=== PATIENT | male | born 1965 | race Caucasian/White ===

== ENCOUNTER 2019-06-11 20:57 | Inpatient (IN) | payer MEDICAID ==
[~2019-06-11] VITALS: Ht 165.1 cm; Wt 73.3 kg
[2019-06-11] MEDS ORDERED: SODIUM CHLORIDE 0.9% 1,000 ML IV ONE ×2 (21:14→23:23)
[2019-06-11 21:48] LABS: BASOPHILS % 0.1 % (0.0-2.0); EOSINOPHILS % 1.7 % (0.0-5.0); HEMATOCRIT. 38.2 % (42.0-52.0); HEMOGLOBIN. 12.6 g/dL (14.0-18.0); LYMPHOCYTES % 9.5 % (20.0-50.0); MEAN CORPUSCULAR HEMOGLOBIN 28.9 pg (28.0-32.0); MEAN CORPUSCULAR VOLUME 87.5 fL (80.0-94.0); MEAN PLATELET VOLUME 8.3 fl (7.4-10.4); MONOCYTES % 5.3 % (2.0-8.0); NEUTROPHILS % 83.4 % (40.0-76.0); PLATELET 250 x1000/uL (130-400); RED BLOOD CELL COUNT 4.36 mill/uL (4.7-6.1); RED CELL DISTRIBUTION WIDTH 13.1 % (11.6-14.6)
[2019-06-11 21:55] LABS: CHLORIDE 104 mEq/L (98-107)
[2019-06-11 22:02] LABS: BETA HYDROXYBUTYRATE 0.1 mMol/L (0.0-0.3)
[2019-06-11] MEDS ORDERED: ONDANSETRON HCL 4MG/2ML INJ IV STA (22:24)
[2019-06-11] MEDS ORDERED: MORPHINE SULFATE 4 MG/ML CPJ (NOT FOR IM USE) IV STA (22:24)
[2019-06-11] MEDS ORDERED: FAMOTIDINE 20MG/2ML VIAL IV STA (22:24)
[2019-06-11] MEDS ORDERED: SODIUM CHLORIDE 0.9% 1000ML BAG (SEPSIS BOLUS) IV ONE (22:45)
[2019-06-11 22:51] LABS: ETHANOL BLOOD < 10 mg/dL
[2019-06-11] MEDS ORDERED: VANCOMYCIN 1 G PREMIX 200 ML IV ONE (23:30)
[2019-06-11] MEDS ORDERED: FENTANYL CITRATE/PF 50MCG/ML 2ML VIAL IV ONE (23:30)
[2019-06-11] MEDS ORDERED: HYDROCORTISONE SOD SUCCINATE 100 MG/2 ML VIAL IV ONE (23:30)
[2019-06-11] MEDS ORDERED: PIPERACILLIN/TAZ 3.375G PREMIX 50 ML IV ONE (23:30)
[2019-06-12] VITALS (52 sets, daily range): BP systolic 70–133; BP diastolic 36–80
[2019-06-12 00:01] LABS: BG BASE EXCESS -7.7 mmol/L (-2.0-2.0); BG CARBOXYHEMOGLOBIN 0.3 % (0.5-1.5); BG DEOXYHEMOGLOBIN 16.9 % (0.0-5.0); BG FRACTION INSPIRED OXYGEN 21; BG HCO3 ACT 18.2 mmol/L (22.0-26.0); BG METHEMOGLOBIN 0.2 % (0.0-1.5); BG OXYHEMOGLOBIN 82.6 % (94.0-97.0); BG PCO2 38.7 mmHg (35.0-45.0); BG PH 7.291 (7.350-7.450); BG PO2 52.1 mmHg (75.0-100.0); BG SAMPLE SITE RIGHT BRACHIAL; BG TOTAL HEMOGLOBIN 10.8 g/dL (12.0-18.0); BG VENT MODE ROOM AIR
[2019-06-12] MEDS ORDERED: FENTANYL CITRATE/PF 50MCG/ML 2ML VIAL IV ONE (01:30)
[2019-06-12] MEDS ORDERED: LIDOCAINE HCL 2% JELLY 30ML TOP SCH (03:15)
[2019-06-12 04:08] LABS: CLARITY URINE CLEAR (CLEAR); COLOR URINE YELLOW (YELLOW); KETONES URINE TRACE (NEGATIVE); LEUKOCYTE ESTERASE URINE NEGATIVE (NEGATIVE); NITRITE URINE NEGATIVE (NEGATIVE); OCCULT BLOOD URINE NEGATIVE (NEGATIVE); PROTEIN URINE 1+ (NEGATIVE); SPECIFIC GRAVITY URINE 1.029 (1.005-1.030); UROBILINOGEN URINE 0.2 E.U./dL (0.2-1.0)
[2019-06-12] MEDS: LACTATED RINGERS 1,000 ML IV SCH ×4 (04:10→18:59)
[2019-06-12 04:34] LABS: *AMPHETAMINES SCREEN URINE NEGATIVE (NEGATIVE); *BARBITURATES SCREEN URINE NEGATIVE (NEGATIVE); *BENZODIAZEPINES SCREEN URINE NEGATIVE (NEGATIVE); *COCAINE SCREEN URINE NEGATIVE (NEGATIVE); METHADONE URINE SCREEN NEGATIVE (NEGATIVE)
[2019-06-12 04:35] LABS: CANNABINOID URINE SCREEN NEGATIVE (NEGATIVE); OPIATES URINE SCREEN NEGATIVE (NEGATIVE); PHENCYCLIDINE URINE SCREEN NEGATIVE (NEGATIVE)
[2019-06-12 05:25] LABS: PARTIAL THROMBOPLASTIN TIME 30.8 sec (23.4-31.0); PROTHROMBIN TIME 11.1 sec (9.6-11.0)
[2019-06-12] MEDS ORDERED: METF-414 PO (05:25)
[2019-06-12 05:30] LABS: HEMATOCRIT. 33.6 % (42.0-52.0); HEMOGLOBIN. 11.5 g/dL (14.0-18.0); MEAN CORPUSCULAR HEMOGLOBIN 29.5 pg (28.0-32.0); MEAN CORPUSCULAR VOLUME 86.2 fL (80.0-94.0); MEAN PLATELET VOLUME 8.8 fl (7.4-10.4); PLATELET 226 x1000/uL (130-400)
[2019-06-12] MEDS ORDERED: MORPHINE SULFATE 4 MG/ML CPJ (NOT FOR IM USE) IV PRN (05:30)
[2019-06-12] MEDS ORDERED: DEXTROSE 50% WATER 50ML SYRINGE IV PRN (05:30)
[2019-06-12] MEDS ORDERED: ONDANSETRON HCL 4MG/2ML INJ IV PRN ×2 (05:30→06:15)
[2019-06-12] MEDS ORDERED: ACETAMINOPHEN 650MG SUPP PR PRN (05:30)
[2019-06-12] MEDS ORDERED: BUPIVACAINE HCL 0.5% (5MG/ML) 50ML ONE (05:39)
[2019-06-12] MEDS ORDERED: SKIN ADHESIVE 0.7 GM EA TOP ONE (05:39)
[2019-06-12] MEDS ORDERED: INSULIN LISPRO 100 UNITS/ML SUBCUT SCH (06:00)
[2019-06-12] MEDS ORDERED: PIPERACILLIN/TAZOBACTAM 3.375 G/VIAL IV SCH (06:00)
[2019-06-12] MEDS: BLOOD SUGAR DIAGNOSTIC STRIP TEST SCH ×4 (06:00→23:07)
[2019-06-12] MEDS ORDERED: DEXT 5%/0.45% NACL KCL 20MEQ/L 1,000 ML IV SCH (06:00)
[2019-06-12] MEDS ORDERED: HYDROMORPHONE HCL/PF 2MG/ML CPJ IV PRN (06:15)
[2019-06-12] MEDS ORDERED: MEPERIDINE HCL/PF 25MG/ML CPJ IV PRN (06:15)
[2019-06-12] MEDS ORDERED: LABETALOL 5MG/ML SYR 20 MG/4 ML SYRINGE IV PRN (06:15)
[2019-06-12 07:24] LABS: PLATELET ESTIMATE NORMAL
[2019-06-12 07:36] LABS: CHLORIDE 111 mEq/L (98-107)
[2019-06-12] MEDS: PIPERACILLIN/TAZOBACTAM 3.375 G in DEXT 5% WATER 100 ML IV SCH ×3 (08:31→21:34)
[2019-06-12] MEDS: METRONIDAZOLE 500 MG PREMIX 100 ML IV SCH ×3 (08:37→22:32)
[2019-06-12] MEDS ORDERED: FAMOTIDINE 20MG/2ML VIAL IV SCH (09:00)
[2019-06-12] MEDS ORDERED: PHENOL/SODIUM PHENOLATE 1.4% SRPAY 177ML MM PRN (10:00)
[2019-06-12] MEDS: PHENOL/SODIUM PHENOLATE 1.4% SRPAY 177ML MM PRN ×2 (10:03→12:32)
[2019-06-12] MEDS: INSULIN LISPRO 100 UNITS/ML SUBCUT SCH ×3 (12:32→23:09)
[2019-06-12] MEDS: PANTOPRAZOLE SODIUM 40 MG/VIAL IV SCH (13:16)
[2019-06-12] MEDS: MORPHINE SULFATE 2 MG/ML CPJ (NOT FOR IM USE) IV PRN (15:19)
[2019-06-13] VITALS (75 sets, daily range): BP systolic 78–147; BP diastolic 34–84
[2019-06-13] MEDS: MORPHINE SULFATE 2 MG/ML CPJ (NOT FOR IM USE) IV PRN ×2 (00:24→11:48)
[2019-06-13] MEDS ORDERED: PHENYLEPHRINE 40 MG in DEXT 5% WATER 496 ML IV PRN (03:00)
[2019-06-13] MEDS: LACTATED RINGERS 1,000 ML IV SCH ×2 (03:41→21:34)
[2019-06-13] MEDS: BLOOD SUGAR DIAGNOSTIC STRIP TEST SCH ×3 (05:18→18:15)
[2019-06-13] MEDS: PIPERACILLIN/TAZOBACTAM 3.375 G in DEXT 5% WATER 100 ML IV SCH ×3 (05:24→21:33)
[2019-06-13 05:25] LABS: HEMATOCRIT. 32.1 % (42.0-52.0); HEMOGLOBIN. 10.5 g/dL (14.0-18.0); MEAN CORPUSCULAR HEMOGLOBIN 28.3 pg (28.0-32.0); MEAN CORPUSCULAR VOLUME 86.3 fL (80.0-94.0); MEAN PLATELET VOLUME 8.7 fl (7.4-10.4); PLATELET 262 x1000/uL (130-400); RED BLOOD CELL COUNT 3.72 mill/uL (4.7-6.1); RED CELL DISTRIBUTION WIDTH 13.7 % (11.6-14.6)
[2019-06-13] MEDS: INSULIN LISPRO 100 UNITS/ML SUBCUT SCH ×3 (05:25→18:23)
[2019-06-13 07:30] LABS: CHLORIDE 112 mEq/L (98-107)
[2019-06-13 07:39] LABS: PHOSPHORUS 2.5 mg/dL (2.5-4.9)
[2019-06-13] MEDS: PHENOL/SODIUM PHENOLATE 1.4% SRPAY 177ML MM PRN (08:21)
[2019-06-13] MEDS: PANTOPRAZOLE SODIUM 40 MG/VIAL IV SCH (08:21)
[2019-06-13 10:21] LABS: PLATELET ESTIMATE NORMAL
[2019-06-14] VITALS (66 sets, daily range): BP systolic 97–160; BP diastolic 56–97
[2019-06-14] MEDS: BLOOD SUGAR DIAGNOSTIC STRIP TEST SCH ×4 (00:54→17:00)
[2019-06-14] MEDS: INSULIN LISPRO 100 UNITS/ML SUBCUT SCH ×4 (00:57→17:28)
[2019-06-14 05:19] LABS: BASOPHILS % 0.1 % (0.0-2.0); EOSINOPHILS % 0.7 % (0.0-5.0); HEMATOCRIT. 31.5 % (42.0-52.0); HEMOGLOBIN. 10.5 g/dL (14.0-18.0); MEAN CORPUSCULAR HEMOGLOBIN 28.7 pg (28.0-32.0); MEAN CORPUSCULAR VOLUME 86.2 fL (80.0-94.0); MEAN PLATELET VOLUME 8.4 fl (7.4-10.4); NEUTROPHILS % 87.2 % (40.0-76.0); PLATELET 247 x1000/uL (130-400); RED BLOOD CELL COUNT 3.65 mill/uL (4.7-6.1); RED CELL DISTRIBUTION WIDTH 13.2 % (11.6-14.6)
[2019-06-14 05:24] LABS: CHLORIDE 110 mEq/L (98-107)
[2019-06-14] MEDS: PIPERACILLIN/TAZOBACTAM 3.375 G in DEXT 5% WATER 100 ML IV SCH ×2 (05:36→14:05)
[2019-06-14] MEDS: LACTATED RINGERS 1,000 ML IV SCH ×2 (05:37→14:06)
[2019-06-14] MEDS: CEFAZOLIN 1000MG PREMIX 50 ML IV SCH (17:27)
[2019-06-14] MEDS: METRONIDAZOLE 500 MG PREMIX 100 ML IV SCH (17:28)
[2019-06-15] VITALS: BP 128/75
[2019-06-15] MEDS: BLOOD SUGAR DIAGNOSTIC STRIP TEST SCH ×4 (00:14→18:26)
[2019-06-15] MEDS: INSULIN LISPRO 100 UNITS/ML SUBCUT SCH ×4 (00:18→18:26)
[2019-06-15] MEDS: CEFAZOLIN 1000MG PREMIX 50 ML IV SCH ×3 (01:25→17:25)
[2019-06-15 04:00] VITALS: BP 125/80
[2019-06-15] MEDS: METRONIDAZOLE 500 MG PREMIX 100 ML IV SCH ×3 (04:45→18:23)
[2019-06-15 08:00] VITALS: BP 119/71
[2019-06-15 08:16] LABS: BASOPHILS % 0.8 % (0.0-2.0); EOSINOPHILS % 3.6 % (0.0-5.0); HEMATOCRIT. 33.1 % (42.0-52.0); HEMOGLOBIN. 11.2 g/dL (14.0-18.0); LYMPHOCYTES % 13.7 % (20.0-50.0); MEAN CORPUSCULAR HEMOGLOBIN 28.6 pg (28.0-32.0); MEAN CORPUSCULAR VOLUME 84.6 fL (80.0-94.0); MEAN PLATELET VOLUME 8.4 fl (7.4-10.4); MONOCYTES % 8.7 % (2.0-8.0); NEUTROPHILS % 73.2 % (40.0-76.0); PLATELET 290 x1000/uL (130-400); RED BLOOD CELL COUNT 3.91 mill/uL (4.7-6.1)
[2019-06-15 08:27] LABS: CHLORIDE 106 mEq/L (98-107)
[2019-06-15] MEDS: LACTATED RINGERS 1,000 ML IV SCH ×2 (10:46→21:43)
[2019-06-15 12:00] VITALS: BP 128/77
[2019-06-15] MEDS ORDERED: POTASSIUM CHLORIDE 20MEQ TABLET SR PO SCH (12:45)
[2019-06-15] MEDS ORDERED: DIATR MEGLU/DIATRIZOATE SOLN 30ML PO SCH (14:00)
[2019-06-15 16:00] VITALS: BP 128/79
[2019-06-15 20:00] VITALS: BP 108/70
[2019-06-15] MEDS ORDERED: IOHEXOL-300 100 ML BOTTLE ONE (21:08)
[2019-06-16] VITALS: BP 120/73
[2019-06-16] MEDS: BLOOD SUGAR DIAGNOSTIC STRIP TEST SCH ×4 (00:45→18:59)
[2019-06-16] MEDS: CEFAZOLIN 1000MG PREMIX 50 ML IV SCH ×3 (00:45→17:17)
[2019-06-16] MEDS: INSULIN LISPRO 100 UNITS/ML SUBCUT SCH ×4 (01:03→18:00)
[2019-06-16] MEDS: METRONIDAZOLE 500 MG PREMIX 100 ML IV SCH ×3 (01:59→17:30)
[2019-06-16 04:00] VITALS: BP 115/69
[2019-06-16 04:36] LABS: BASOPHILS % 0.5 % (0.0-2.0); EOSINOPHILS % 6.2 % (0.0-5.0); HEMATOCRIT. 31.3 % (42.0-52.0); HEMOGLOBIN. 11.1 g/dL (14.0-18.0); MEAN CORPUSCULAR HEMOGLOBIN 29.7 pg (28.0-32.0); MEAN CORPUSCULAR VOLUME 83.5 fL (80.0-94.0); MONOCYTES % 12.1 % (2.0-8.0); NEUTROPHILS % 65.2 % (40.0-76.0); PLATELET 330 x1000/uL (130-400); RED BLOOD CELL COUNT 3.75 mill/uL (4.7-6.1)
[2019-06-16 04:40] LABS: CHLORIDE 103 mEq/L (98-107)
[2019-06-16] MEDS: LACTATED RINGERS 1,000 ML IV SCH ×2 (06:31→17:18)
[2019-06-16 08:00] VITALS: BP 130/74
[2019-06-16 12:00] VITALS: BP 133/74
[2019-06-16] MEDS ORDERED: POTASSIUM CHLORIDE 20MEQ TABLET SR PO NR (13:00)
[2019-06-16 16:00] VITALS: BP 128/84
[2019-06-16 20:00] VITALS: BP 92/54
[2019-06-17] VITALS: BP 109/62
[2019-06-17] MEDS: BLOOD SUGAR DIAGNOSTIC STRIP TEST SCH ×4 (00:16→18:02)
[2019-06-17] MEDS: INSULIN LISPRO 100 UNITS/ML SUBCUT SCH ×4 (00:20→18:27)
[2019-06-17] MEDS: LACTATED RINGERS 1,000 ML IV SCH ×2 (00:23→13:04)
[2019-06-17] MEDS: CEFAZOLIN 1000MG PREMIX 50 ML IV SCH ×4 (00:23→23:41)
[2019-06-17 04:00] VITALS: BP 101/63
[2019-06-17 06:10] LABS: BASOPHILS % 0.4 % (0.0-2.0); EOSINOPHILS % 8.3 % (0.0-5.0); LYMPHOCYTES % 17.5 % (20.0-50.0); MEAN CORPUSCULAR HEMOGLOBIN 28.9 pg (28.0-32.0); MEAN CORPUSCULAR VOLUME 83.7 fL (80.0-94.0); NEUTROPHILS % 60.8 % (40.0-76.0); PLATELET 352 x1000/uL (130-400); RED BLOOD CELL COUNT 3.82 mill/uL (4.7-6.1); RED CELL DISTRIBUTION WIDTH 13.2 % (11.6-14.6)
[2019-06-17 06:18] LABS: CHLORIDE 104 mEq/L (98-107)
[2019-06-17 08:00] VITALS: BP_SYST 112; BP_SYST 129; BP_DIAS 67; BP_DIAS 89
[2019-06-17] MEDS ORDERED: POTASSIUM CHLORIDE 20MEQ TABLET SR PO NR (11:15)
[2019-06-17 12:00] VITALS: BP 130/80
[2019-06-17 16:00] VITALS: BP_SYST 125; BP_DIAS 76; BP_DIAS 77
[2019-06-17 20:00] VITALS: BP 113/63
[2019-06-17] MEDS: METRONIDAZOLE 500MG TABLET PO SCH (22:24)
[2019-06-18] VITALS: BP 104/56
[2019-06-18] MEDS: INSULIN LISPRO 100 UNITS/ML SUBCUT SCH ×3 (00:16→13:03)
[2019-06-18 04:00] VITALS: BP 103/59
[2019-06-18] MEDS: METRONIDAZOLE 500MG TABLET PO SCH (05:14)
[2019-06-18] MEDS: BLOOD SUGAR DIAGNOSTIC STRIP TEST SCH ×3 (05:36→12:58)
[2019-06-18 07:09] LABS: BASOPHILS % 0.6 % (0.0-2.0); EOSINOPHILS % 8.9 % (0.0-5.0); HEMATOCRIT. 31.8 % (42.0-52.0); HEMOGLOBIN. 10.9 g/dL (14.0-18.0); LYMPHOCYTES % 21.6 % (20.0-50.0); MEAN CORPUSCULAR HEMOGLOBIN 28.9 pg (28.0-32.0); MEAN CORPUSCULAR VOLUME 84.3 fL (80.0-94.0); MEAN PLATELET VOLUME 8.1 fl (7.4-10.4); MONOCYTES % 11.9 % (2.0-8.0); PLATELET 412 x1000/uL (130-400); RED BLOOD CELL COUNT 3.77 mill/uL (4.7-6.1); RED CELL DISTRIBUTION WIDTH 13.1 % (11.6-14.6)
[2019-06-18 07:28] LABS: CHLORIDE 105 mEq/L (98-107)
[2019-06-18 08:00] VITALS: BP 111/69
[2019-06-18] MEDS: LACTATED RINGERS 1,000 ML IV SCH (08:02)
[2019-06-18] MEDS: CEFAZOLIN 1000MG PREMIX 50 ML IV SCH (08:22)
[2019-06-18] MEDS ORDERED: POTASSIUM CHLORIDE 20MEQ/PACKET PO SCH (10:00)
[2019-06-18] MEDS ORDERED: CALCIUM CARBONATE 1250MG TABLET (500MG ELEMENTAL CALCIUM) PO SCH (10:00)
[2019-06-18 12:00] VITALS: BP 129/78
[2019-06-18 14:26] VITALS: BP 104/56
== END 2019-06-18 15:00 | disposition home or self-care (01) | DRG 710 ==
LOC: ER 20:57 → EDBEDREQ 06-12 01:33 → EDBEDREQTM 06-12 01:33 → ENRESERV 06-12 02:49 → MICUSO 06-12 04:11 → 6EST 06-14 20:45
PROVIDERS: ADMIT Internal Medicine; ATTEND Internal Medicine
PROC: 0DTJ4ZZ Resection of Appendix, Percutaneous Endoscopic Approach (ICD-10-PCS; principal; 2019-06-12)
PROC: 0W9J30Z Drainage of Pelvic Cavity with Drainage Device, Percutaneous Approach (ICD-10-PCS; 2019-06-12)
DX: A41.9 Sepsis, unspecified organism (principal); R65.21 Severe sepsis with septic shock; E87.2 Acidosis; K35.33 Acute appendicitis with perforation, localized peritonitis, and gangrene, with abscess; K26.9 Duodenal ulcer, unspecified as acute or chronic, without hemorrhage or perforation; E11.65 Type 2 diabetes mellitus with hyperglycemia; K40.90 Unilateral inguinal hernia, without obstruction or gangrene, not specified as recurrent; K52.9 Noninfective gastroenteritis and colitis, unspecified; D64.9 Anemia, unspecified; K29.70 Gastritis, unspecified, without bleeding; K31.89 Other diseases of stomach and duodenum; N20.0 Calculus of kidney; K56.0 Paralytic ileus; Z79.4 Long term (current) use of insulin; K91.89 Other postprocedural complications and disorders of digestive system
CPT/HCPCS: 36415; 36600; 71045; 73706; 74176; 74177; 80048; 80053; 80305; 80320; 81003; 82010; 82375; 82805; 82962; 83036; 83605; 83735; 84100; 84145; 84484; 85025; 86850; 86900; 87015; 87045; 87070; 87075; 87077; 87177; 87186; 87209; 87427; 87449; 87493; 88304; 89055; 93005; 93970; 97116; 97162; 99291; C9113; J0690; J1100; J1720; J1815; J2250; J2270; J2405; J2543; J2704; J2710; J3010; J3370; J3490; J7030; J7060; J7120; Q9963; Q9967; G0480